=== PATIENT | female | born 1960 | race Caucasian/White ===

== ENCOUNTER 2019-10-22 01:26 | Emergency (ER) | payer OTHER ==
[~2019-10-22] VITALS: Ht 177.8 cm; Wt 111.1 kg
--- NOTE | 2019-10-22 01:37 | NUR ---
at bedside for MSE
--- NOTE | 2019-10-22 01:52 | NUR ---
Patient discharged to home in stable condition. Patient noted ambulating with steady gait. Written and verbal after care instructions given. Patient verbalizes understanding of instructions. Stressed follow up or return to ER for worsening s/s.
[2019-10-22 02:01] VITALS: BP 190/115
== END 2019-10-22 01:52 | disposition home or self-care (01) ==
LOC: ER 01:31
DX: S40.212A Abrasion of left shoulder, initial encounter (principal); X58.XXXA Exposure to other specified factors, initial encounter; Y92.89 Other specified places as the place of occurrence of the external cause; F41.9 Anxiety disorder, unspecified; R03.0 Elevated blood-pressure reading, without diagnosis of hypertension; Z90.710 Acquired absence of both cervix and uterus; R00.0 Tachycardia, unspecified
CPT/HCPCS: A4663

== ENCOUNTER 2020-11-30 18:51 | Emergency (ER) | payer OTHER ==
[~2020-11-30] VITALS: Ht 177.8 cm; Wt 99.8 kg
[2020-11-30 19:24] LABS: *BILIRUBIN,URIN NEGATIVE (NEGATIVE); *BLOOD, URINE 3+ (NEGATIVE); *KETONES,URINE NEGATIVE (NEGATIVE); *UROBILINOGEN,URINE 0.2 E.U./dl (NORMAL); LEUKOCYTE ESTERASE ,URINE 1+ (NEGATIVE); NITRITE, URINE NEGATIVE (NEGATIVE); UGLUCOSE TRACE (NEGATIVE)
[2020-11-30 19:25] LABS: *COLOR,URINE PINK (YELLOW)
[2020-11-30 19:30] LABS: *CLARITY,URINE HAZY (CLEAR)
[2020-11-30 19:31] LABS: BACTERIA,URINE FEW /HPF (NONE SEEN); RBC,URINE 80-100 /HPF (0-3); SQUAMOUS EPITHELIAL CELL,UR MODERATE /HPF (NONE SEEN)
[2020-11-30] MEDS ORDERED: NITR100C6 PO (20:13)
[2020-11-30] MEDS ORDERED: NITROFURANTOIN/NITROFURAN MAC 100 MG CAPSULE PO ONE ×2 (20:15→20:20)
--- NOTE | 2020-11-30 20:20 | NUR ---
DR LESTER MADE PATIENT AWARE OF TEST RESULTS.
--- NOTE | 2020-11-30 20:23 | NUR ---
Patient discharged to home in stable condition. Written and verbal after care instructions given. Patient verbalizes understanding of instructions. Stressed follow up or return to ER for worsening s/s.
[2020-11-30 20:25] VITALS: BP 159/89
== END 2020-11-30 20:26 | disposition home or self-care (01) ==
LOC: ER 18:57
DX: R31.9 Hematuria, unspecified (principal); I10 Essential (primary) hypertension; Z90.710 Acquired absence of both cervix and uterus; K08.89 Other specified disorders of teeth and supporting structures
CPT/HCPCS: 87086; A4663

== ENCOUNTER 2020-12-12 05:37 | Emergency (ER) | payer OTHER ==
[~2020-12-12] VITALS: Ht 177.8 cm; Wt 99.8 kg
[~2020-12-12 05:37] MED LIST: NITR100C6 PO
[2020-12-12 06:01] LABS: *BILIRUBIN,URIN NEGATIVE (NEGATIVE); *BLOOD, URINE 3+ (NEGATIVE); *CLARITY,URINE CLEAR (CLEAR); *COLOR,URINE PINK (YELLOW); *KETONES,URINE NEGATIVE (NEGATIVE); *UROBILINOGEN,URINE 0.2 E.U./dl (NORMAL); LEUKOCYTE ESTERASE ,URINE NEGATIVE (NEGATIVE); NITRITE, URINE NEGATIVE (NEGATIVE); UGLUCOSE NEGATIVE (NEGATIVE)
[2020-12-12 06:14] LABS: BACTERIA,URINE NONE SEEN /HPF (NONE SEEN); RBC,URINE 0-3 /HPF (0-3); SQUAMOUS EPITHELIAL CELL,UR FEW /HPF (NONE SEEN); WBC,URINE 0-3 /HPF (0-3)
[2020-12-12] MEDS ORDERED: CEFP200T14 PO (06:58)
[2020-12-12] MEDS ORDERED: NITR-104 PO (07:15)
== END 2020-12-12 07:05 | disposition home or self-care (01) ==
LOC: ER 05:43
DX: R31.9 Hematuria, unspecified (principal); I16.0 Hypertensive urgency; F41.9 Anxiety disorder, unspecified; E66.9 Obesity, unspecified; Z68.31 Body mass index [BMI] 31.0-31.9, adult; Z87.440 Personal history of urinary (tract) infections; Z90.710 Acquired absence of both cervix and uterus
CPT/HCPCS: 87086; A4663

== ENCOUNTER 2023-12-04 21:43 | Emergency (ER) | payer OTHER ==
[~2023-12-04] VITALS: Ht 177.8 cm; Wt 99.8 kg
[~2023-12-04 21:43] MED LIST changes: +NITR-104 PO
[2023-12-04] MEDS ORDERED: CHLO473M5 PO (22:23)
[2023-12-04 22:38] VITALS: BP 165/96; TEMP 97.8; O2SAT 99
== END 2023-12-04 22:39 | disposition home or self-care (01) ==
LOC: ER 21:49
DX: I10 Essential (primary) hypertension (principal); F41.9 Anxiety disorder, unspecified; Z79.899 Other long term (current) drug therapy; Z60.2 Problems related to living alone; Z88.1 Allergy status to other antibiotic agents
CPT/HCPCS: A4606; A4663